=== PATIENT | male | born 1975 | race Caucasian/White ===

== ENCOUNTER 2017-09-11 05:55 | Day surgery (SDC) | payer OTHER ==
[~2017-09-11] VITALS: Ht 160 cm; Wt 64.5 kg
[~2017-09-11 05:55] MED LIST: LAMO100 PO; MULT1CAP32 PO; RINGERS SOLUTION,LACTATED 1,000 ML IV ONE
[2017-09-11] MEDS ORDERED: GLYCOPYRROLATE 0.2 MG/ML VIAL IM ONE (05:56)
[2017-09-11] MEDS ORDERED: PROPOFOL 1% 20 ML VIAL IVP ONE (05:56)
[2017-09-11] MEDS ORDERED: LIDOCAINE HCL/PF 2% 5 ML VIAL IM ONE (05:56)
[2017-09-11] MEDS ORDERED: SUCCINYLCHOLINE CHLORIDE 20 MG/ML 10 ML VIAL IVP ONE (05:56)
[2017-09-11] MEDS ORDERED: EPHEDrine SULFATE 50 MG/ML VIAL IM ONE (05:56)
[2017-09-11] MEDS ORDERED: RINGERS SOLUTION,LACTATED 1,000 ML IV ONE (06:00)
[2017-09-11] MEDS ORDERED: KETAMINE HCL 50 MG/ML 10 ML VIAL ONE (07:32)
[2017-09-11] MEDS ORDERED: MIDAZOLAM HCL 5 MG/ML VIAL ONE (07:41)
[2017-09-11] MEDS ORDERED: AMPICILLIN SODIUM 1 GM/VIAL ONE (07:43)
[2017-09-11 08:11] LABS: BASOPHILS % (AUTO) 0.5 % (0.0-2.0); EOSINOPHILS % (AUTO) 0.1 % (1.0-6.0); HEMATOCRIT 44.5 % (41-53); HEMOGLOBIN 16.1 g/dL (13.5-17.5); LYMPHOCYTES # (AUTO) 0.5 K/uL (1.0-4.8); LYMPHOCYTES % (AUTO) 8.8 % (22.0-44.0); MEAN CORPUSCULAR HEMOGLOBIN 35.4 pg (26.0-34.0); MEAN CORPUSCULAR HGB CONC 36.1 G/dL (31.0-37.0); MEAN CORPUSCULAR VOLUME 98 fL (80-100); MONOCYTES # (AUTO) 0.4 K/uL (0.1-1.0); MONOCYTES % (AUTO) 6.4 % (2.0-9.0); NEUTROPHILS # (AUTO) 5.1 K/uL (1.8-7.7); NEUTROPHILS % (AUTO) 84.2 % (40.0-70.0); PLATELET COUNT (AUTO) 305 K/uL (150-450); RED BLOOD CELL COUNT(AUTO) 4.55 MIL/uL (4.50-5.90); RED CELL DISTRIBUTION WIDTH 13.5 % (11.5-14.5)
[2017-09-11 08:18] LABS: ANION GAP 6 mmol/L (8-16); CALCIUM, TOTAL 8.2 mg/dL (8.8-10.5); CARBON DIOXIDE 28 mmol/L (22-29); CHLORIDE 101 mmol/L (98-107); CREATININE 1.05 mg/dL (0.60-1.30); GLOMERULAR FILTR. RATE CALC > 60 mL/min (>60); GLUCOSE,RANDOM 118 mg/dL (70-110); POTASSIUM 3.5 mmol/L (3.5-5.1); PROTHROMBIN TIME 10.7 SEC (9.4-11.6); SODIUM SERUM 135 mmol/L (136-145); UREA NITROGEN, BLOOD 8 mg/dL (7-18)
[2017-09-11 08:33] LABS: ALANINE AMINOTRANSFERASE 91 U/L (12-78); ALBUMIN 3.6 g/dL (3.4-5.0); ALKALINE PHOSPHATASE 100 U/L (46-116); ASPARTATE AMINOTRANSFERASE 45 U/L (15-37); BILIRUBIN,TOTAL 0.8 mg/dL (0.1-1.0); THYROID STIMULATING HORMONE 3.54 uIU/mL (0.36-3.74); TOTAL PROTEIN, SERUM 7.9 g/dL (6.4-8.2)
[2017-09-11 09:09] LABS: HEMOGLOBIN A1C 5.5 % (4.5-6.2)
[2017-09-11] MEDS ORDERED: FentaNYL CITRATE-PF 100 MCG/2 ML VIAL IVP PRN (09:15)
[2017-09-11] MEDS ORDERED: OXYGEN THERAPY IH SCH (09:15)
[2017-09-11] MEDS ORDERED: MEPERIDINE HCL/PF 25 MG/0.5 ML AMP IVP PRN (09:15)
[2017-09-11] MEDS ORDERED: HYDROmorphone 2 MG/ML SYRINGE IVP PRN (09:15)
== END 2017-09-11 12:30 | disposition home or self-care (01) ==
LOC: SURGERY 05:55
PROVIDERS: ATTEND Dentist General Practice
DX: K05.322 Chronic periodontitis, generalized, moderate (principal); Q90.9 Down syndrome, unspecified; E87.1 Hypo-osmolality and hyponatremia; E83.51 Hypocalcemia; K90.0 Celiac disease; I10 Essential (primary) hypertension; Z91.018 Allergy to other foods; Z79.899 Other long term (current) drug therapy; Z98.890 Other specified postprocedural states
CPT/HCPCS: 36415; 41899; 71045; 80048; 80076; 80175; 83036; 84443; 85025; 85610; 85730; 93005; J0290; J0330; J2250; J2704; J3490 ×4; J7120

== ENCOUNTER 2023-03-20 06:39 | Day surgery (SDC) | payer OTHER ==
[~2023-03-20] VITALS: Ht 162.6 cm; Wt 64.1 kg
[~2023-03-20 06:39] MED LIST changes: +LAMO-24 PO; -LAMO100 PO; -RINGERS SOLUTION,LACTATED 1,000 ML IV ONE
[2023-03-20] MEDS ORDERED: ROCURONIUM BROMIDE 10 MG/ML 5 ML VIAL IVP ONE ×2 (06:40)
[2023-03-20] MEDS ORDERED: ONDANSETRON HCL 4 MG/2 ML VIAL IVP ONE (06:40)
[2023-03-20] MEDS ORDERED: KETAMINE HCL 50 MG/ML 10 ML VIAL IVP ONE (06:40)
[2023-03-20] MEDS ORDERED: PROPOFOL 1% 20 ML VIAL IVP ONE (06:40)
[2023-03-20] MEDS ORDERED: SUGAMMADEX SODIUM 200 MG/2 ML VIAL IVP ONE (06:40)
[2023-03-20] MEDS ORDERED: AMPICILLIN SODIUM 2 GM/NS 100 ML IV ONE (07:13)
[2023-03-20] MEDS ORDERED: RINGERS SOLUTION,LACTATED 1,000 ML IV ONE ×2 (08:00→08:27)
[2023-03-20] MEDS ORDERED: MIDAZOLAM HCL 5 MG/ML VIAL ONE (10:06)
[2023-03-20 10:30] LABS: EOSINOPHILS % (AUTO) 0.1 % (1.0-6.0); HEMOGLOBIN 14.8 g/dL (13.5-17.5); LYMPHOCYTES # (AUTO) 0.6 K/uL (1.0-4.8); LYMPHOCYTES % (AUTO) 11.3 % (22.0-44.0); MEAN CORPUSCULAR HEMOGLOBIN 36.1 pg (26.0-34.0); MEAN CORPUSCULAR HGB CONC 35.2 G/dL (31.0-37.0); MEAN CORPUSCULAR VOLUME 103 fL (80-100); MONOCYTES # (AUTO) 0.4 K/uL (0.1-1.0); MONOCYTES % (AUTO) 7.1 % (2.0-9.0); NEUTROPHILS # (AUTO) 4.4 K/uL (1.8-7.7); NEUTROPHILS % (AUTO) 80.5 % (40.0-70.0); PLATELET COUNT (AUTO) 308 K/uL (150-450); WHITE BLOOD COUNT (AUTO) 5.4 K/uL (4.5-11.0)
[2023-03-20 10:42] LABS: ANION GAP 5 mmol/L (8-16); CALCIUM, TOTAL 8.8 mg/dL (8.8-10.5); CARBON DIOXIDE 29 mmol/L (22-29); CHLORIDE 106 mmol/L (98-107); CREATININE 0.95 mg/dL (0.60-1.30); GLOMERULAR FILTR. RATE CALC > 60 mL/min (>60); GLUCOSE,RANDOM 106 mg/dL (70-110); POTASSIUM 3.8 mmol/L (3.5-5.1); SODIUM SERUM 140 mmol/L (136-145); UREA NITROGEN, BLOOD 9 mg/dL (7-18)
[2023-03-20 10:45] LABS: PROTHROMBIN TIME 10.7 SEC (9.4-11.6)
[2023-03-20 10:48] LABS: ALANINE AMINOTRANSFERASE 57 U/L (12-78); ALBUMIN 3.7 g/dL (3.4-5.0); ALKALINE PHOSPHATASE 95 U/L (46-116); ASPARTATE AMINOTRANSFERASE 35 U/L (15-37); BILIRUBIN,TOTAL 0.7 mg/dL (0.1-1.0); TOTAL PROTEIN, SERUM 8.1 g/dL (6.4-8.2)
[2023-03-20 11:14] LABS: RBC MORPHOLOGY COMMENT ABNORMAL RBC MORPH
[2023-03-20] MEDS ORDERED: BACITRACIN 28 GM OINTMENT TP ONE (11:46)
== END 2023-03-20 13:30 | disposition home or self-care (01) ==
LOC: SURGERY 06:39
PROVIDERS: ATTEND Dentist General Practice
DX: K05.30 Chronic periodontitis, unspecified (principal); K02.9 Dental caries, unspecified; Q90.9 Down syndrome, unspecified; K03.6 Deposits [accretions] on teeth; Z98.890 Other specified postprocedural states; Z79.899 Other long term (current) drug therapy; Z79.01 Long term (current) use of anticoagulants
CPT/HCPCS: 41899; 71045; 80053; 85025; 85610; 85730; 36415; 93005; J0290; J2704; J3490 ×2; J2405; J2250; Q9967; J7120